=== PATIENT | female | born 1950 | race Caucasian/White ===

== ENCOUNTER → 2017-10-27 11:34 | Outpatient (CLI) | payer MEDICARE, SELFPAY ==
[2017-10-27 14:29] LABS: Hemoglobin A1c 7.9 % (4.2-6.3)
== END ==
PROVIDERS: Family Provider Internal Medicine Adolescent Medicine; PCP Internal Medicine Adolescent Medicine; Visit Provider Internal Medicine
DX: E10.9 Type 1 diabetes mellitus without complications (principal); Z79.4 Long term (current) use of insulin
CPT/HCPCS: 36415; 83036

== ENCOUNTER → 2018-06-07 10:51 | Outpatient (CLI) | payer MEDICARE, SELFPAY ==
[2018-06-07 12:12] LABS: Hematocrit 46.8 % (37-47); Hemoglobin 15.3 g/dl (12.0-15.0); Mean Corp Hgb Conc 32.7 g/gl (32-36); Mean Corpuscular Hgb 27.4 pg (27.0-32.0); Mean Corpuscular Volume 83.9 fL (81-99); Mean Platelet Vol. 9.6 fl (6.2-12.0); Platelet Count 243 K/mm3 (150-450); RBC Distribution Width SD 49.1 fl (35.1-43.9); Red Blood Count 5.58 M/mm3 (4.2-5.4); White Blood Count 7.6 K/mm3 (4.4-11.0)
[2018-06-07 12:13] LABS: Scan Indicated on CBC? Y/N NO
[2018-06-07 12:30] LABS: Hemoglobin A1c 8.6 % (4.2-6.3)
[2018-06-07 12:44] LABS: Microalbumin,Random Urine < 5.0 mg/L (NO RANGE EST.)
[2018-06-07 12:50] LABS: ALB/GLOB Ratio 0.8 RATIO (0.9-2.4); AST(SGOT) 29 U/L (15-37); Alanine Aminotransfer ALT/SGPT 39 U/L (13-56); Albumin, Serum 3.2 g/dL (3.2-5.0); Alkaline Phosphatase 83 U/L (45-117); Anion Gap 11 (5-15); BUN 26 mg/dL (7-18); Chloride 105 mmol/L (98-107); Cholesterol 130 mg/dL (200); Creatinine, Serum 1.37 mg/dL (0.55-1.02); EST Glomerular Filtration Rate 41 mL/min (>60); Est Glom Filt Rate - Afr Amer 50 mL/min (>60); Glucose 121 mg/dL (74-106); High Density Lipoprotein 41 mg/dL; Potassium 3.8 mmol/L (3.5-5.1); Protein, Total 7.2 g/dL (6.4-8.2); Sodium Level 142 mmol/L (136-145); Thyroid Stim Hormone (TSH) 2.49 uIU/mL (0.358-3.74); Triglycerides 203 mg/dL; Very Low Density Lipoprotein 41 mg/dL (5-40)
--- OUTSIDE RECORDS SUMMARY | 2018-09-08 19:12 | XMS RPT_ITS ---
:1950 Author Organization OHIP Support Name Relationship Address Phone R Unavailable Unavailable Unavailable JERRY FISHER Unavailable [address] + [place] [address] CLARISSA FISHER Unavailable Unavailable + ~([phone] NATALIA, ELIJAH Unavailable Unavailable + MERVAT FISHERICK Unavailable Unavailable + ~([phone] HERBERT FISHERRA Unavailable Unavailable + NATALIAMERVAT PARSONSICK Unavailable Unavailable + ~(330 NATALIA, ELIJAH Unavailable Unavailable + NATALIAANTONIETA PARSONSDRICK Unavailable Unavailable + ~(330 NATALIA, ELIJAH Unavailable Unavailable + NATALIAANTONIETA PARSONSDRICK Unavailable Unavailable + ~(330 NATALIA, ELIJAH Unavailable Unavailable + ANTONIETA FISHERDRICK Unavailable Unavailable + ~(330 NATALIA, ELIJAH Unavailable Unavailable + NATALIAMERVAT PARSONSICK Unavailable Unavailable + ~(330 NATALIA, ELIJAH Unavailable Unavailable + NATALIAMEGAN PARSONSICK Unavailable Unavailable + NATALIAMERVAT PARSONSICK Unavailable Unavailable + ~([phone] HERBERT FISHERRA Unavailable Unavailable + R Unavailable Unavailable Unavailable JERRY FISHER Unavailable [address] + [facility] [place] [address] MEGAN FISHERICK Unavailable [id number] + Care Team Providers Name Role Phone DEVORA BASS Attending Unavailable DEVORA BASS Referring Unavailable YANELY SHANKAR Primary Care Unavailable DEVORA BASS Attending Unavailable DEVORA BASS Referring Unavailable WESTOLGA LIDIABECKYANELY Primary Care Unavailable DUNG GARCIA MD Attending Unavailable YANELY SHANKAR MD Primary Care Unavailable DUNG GARCIA MD Attending Unavailable YANELY SHANKAR MD Primary Care Unavailable DUNG GARCIA MD Admitting Unavailable DUNG GARCIA MD Consulting Unavailable KIANNA MENA MD Consulting Unavailable TANO ROLDAN MD Consulting Unavailable DEVORA WALTER DO Consulting Unavailable DEVORA BASS MD Consulting Unavailable HOSPITALISTJORGE Consulting Unavailable ELOINA PRIDE Consulting Unavailable DUNG GARCIA MD Attending Unavailable YANELY SHANKAR MD Primary Care Unavailable YANELY SHANKAR MD Attending Unavailable YANELY SHANKAR MD Primary Care Unavailable YANELY SHANKAR MD Primary Care Unavailable DUNG GARCIA MD Admitting Unavailable DUNG GARCIA MD Attending Unavailable THERESA FELDMAN MD Consulting Unavailable DUNG GARCIA MD Consulting Unavailable HOSPITALISTJORGE Consulting Unavailable DUNG GARCIA MD Attending Unavailable YANELY SHANKAR MD Primary Care Unavailable DUNG GARCIA MD Attending Unavailable YANELY SHANKAR MD Primary Care Unavailable YANELY SHANKAR MD Attending Unavailable YANELY SHANKAR MD Primary Care Unavailable DUNG GARCIA MD Attending Unavailable YANELY SHANKAR MD Primary Care Unavailable Jonnathan Don Attending Unavailable PROBLEMS PROBLEMS DATE TYPE CONDITION / CODE ATTENDING STATUS SOURCE 03/28/2018 Admitting Type 2 diabetes RAAD PEREZ, Active [facility] Diagnosis mellitus without YANELY C [facility] complications / Repository E11.9(ICD-10) 03/28/2018 Admitting Obstructive sleep RAAD PEREZ, Active [facility] Diagnosis apnea (adult) YANELY C [facility] (pediatric) / Repository G47.33(ICD-10) 03/28/2018 Admitting Unspecified RAAD PEREZ, Active [facility] Diagnosis osteoarthritis, YANELY C [facility] unspecified site / Repository M19.90(ICD-10) 03/28/2018 Admitting Obesity, RAAD PEREZ, Active [facility] Diagnosis unspecified / YANELY C [facility] E66.9(ICD-10) Repository 03/28/2018 Admitting Vitamin D RAAD PEREZ, Active [facility] Diagnosis deficiency, YANELY C [facility] unspecified / Repository E55.9(ICD-10) 03/28/2018 Admitting Essential (primary) RAAD PEREZ, Active [facility] Diagnosis hypertension / YANELY C [facility] I10(ICD-10) Repository 03/28/2018 Admitting Hyperlipidemia, RAAD PEREZ, Active [facility] Diagnosis unspecified / YANELY C [facility] E78.5(ICD-10) Repository 10/27/2017 Unknown E10.9 - Type 1 DEVORA BASS Active [place] diabetes mellitus [facility] complications / Repository E10.9(ICD-10) 10/15/2017 Admitting Unknown / Jonnathan Don Active [facility] Medical diagnosis UNK(Unknown) [facility] Repository PROCEDURES PROCEDURES No Procedure Records FoundRESULTS RESULTS CBC-COMPLETE BLOOD CNT Collected: 06/07/2018 Status: F Source: [facility] NO DIFF 10:56 AM REPOSITORY TYPE CODE TESTS RESULT OUT OF RANGE REFERENCE UNITS LAB L100.1000 4.4-11.0 K/mm3 Normal WBC 7.6 LAB L100.1200 4.2-5.4 M/mm3 High RBC 5.58 LAB L100.1300 12.0-15.0 g/dl High HGB 15.3 LAB L100.1400 37-47 % Normal HCT 46.8 LAB L100.1500 81-99 fL Normal MCV 83.9 LAB L100.1600 27.0-32.0 pg Normal MCH 27.4 LAB L100.1700 32-36 g/gl Normal MCHC 32.7 LAB L100.1810 11.6-14.6 % High RDW CV 16.0 LAB L100.1820 35.1-43.9 fl High RDW SD 49.1 LAB L100.1900 150-450 K/mm3 Normal PLT 243 LAB L100.2000 6.2-12.0 fl Normal MPV 9.6 Performed By: #### L100.0500 #### [facility] [address] [place], [address] HEMOGLOBIN A1C Collected: 06/07/2018 Status: F Source: [facility] 10:56 AM REPOSITORY TYPE CODE TESTS RESULT OUT OF RANGE REFERENCE UNITS LAB L501.9985 4.2-6.3 % High HGB A1C 8.6 Performed By: #### L501.9985 #### [facility] [address] [place], [place], [address] MICROALB:CREAT Collected: 06/07/2018 Status: F Source: [facility] RATIO,RANDOM UR 10:56 AM REPOSITORY TYPE CODE TESTS RESULT OUT OF RANGE REFERENCE UNITS LAB L501.1200 NO RANGE EST. mg/dL 46.50 Normal UR CREAT LAB L502.0500 NO RANGE EST. mg/L < 5.0 Normal MICROALBUMI N,UR LAB L502.0600 <30 mg/g CRE mg/g CRE Test Normal not performed MALB:CREAT Performed By: #### L502.0250 #### [facility] [address] [place] [place], [address] COMPREHENSIVE METABOLIC Collected: 06/07/2018 Status: F Source: [facility] 10:56 AM REPOSITORY TYPE CODE TESTS RESULT OUT OF RANGE REFERENCE UNITS LAB L501.0100 74-106 mg/dL High GLU 121 Result Comment: Fasting Glucose result from 100 to 125 mg/dL suggests IMPAIRED HOMEOSTASIS per A.D.A. criteria. Please note revised GLUCOSE reference range effective 2017. LAB L501.1000 7-18 mg/dL High BUN 26 LAB L501.1100 0.55-1.02 mg/dL High CREAT,SERUM 1.37 Result Comment: The validity of the calculated GFR AND GFRAA in patients over 70 years has not been determined. Clinical correlation is essential. LAB L501.1110 >60 mL/min Low EST GFR 41 Result Comment: Non- GFR Calc LAB L501.1115 >60 mL/min Low EST GFR - AA 50 Result Comment: GFR Calc LAB L501.1300 10-20 RATIO Normal BUN/CRE 19.0 LAB L501.1500 6.4-8.2 g/dL T Normal PROT 7.2 LAB L501.1800 3.2-5.0 g/dL Normal ALB 3.2 LAB L501.1950 2.2-4.2 g/dL Normal GLOB 4.0 LAB L501.2000 0.9-2.4 RATIO Low A/G 0.8 LAB L501.2200 8.5-10.1 mg/dL CA Normal 9.0 LAB L501.4100 15-37 U/L Normal AST 29 LAB L501.4305 45-117 U/L Normal ALK P 83 LAB L501.4405 13-56 U/L Normal ALT 39 LAB L501.4600 0.20-1.00 mg/dL T Normal BILI 0.80 LAB L501.5300 136-145 mmol/L NA Normal 142 LAB L501.5600 3.5-5.1 mmol/L K Normal 3.8 LAB L501.5900 98-107 mmol/L CL Normal 105 LAB L501.6100 21.0-32.0 mmol/L Normal CO2 26.0 LAB L501.6200 5-15 Normal GAP 11 Performed By: #### L500.4050, L500.4100, L501.9520 #### [facility] [address] [place], [address] LIPID PROFILE Collected: 06/07/2018 Status: F Source: [facility] 10:56 AM REPOSITORY TYPE CODE TESTS RESULT OUT OF RANGE REFERENCE UNITS LAB L501.4900 200 mg/dL Normal CHOL 130 Result Comment: <200 mg/dL Desirable 200-240 mg/dL Borderline >240 mg/dL High Risk LAB L501.5000 mg/dL High TRIG 203 Result Comment: The drugs N-Acetylcysteine and Metamizole may falsely depress this assay. Serum Triglycerides Reference Interval Normal <150 mg/dL Borderline high 150 - 199 mg/dL High 200 - 499 mg/dL Very High > or = 500 mg/dL LAB L501.6400 mg/dL Normal HDL 41 Result Comment: The drugs N-Acetylcysteine and Metamizole may falsely depress this assay. Reference Range HDL <40 mg/dL Low HDL Cholesterol HDL >or= 60 mg/dL High HDL Cholesterol LAB L501.6500 0-130 mg/dL Normal LDL 48 LAB L501.6600 5-40 mg/dL High VLDL 41 Performed By: #### L500.4050, L500.4100, L501.9520 #### [facility] [address] [place], [place], [id number] THYROID STIM HORMONE Collected: 06/07/2018 Status: F Source: [facility] (TSH) 10:56 AM REPOSITORY TYPE CODE TESTS RESULT OUT OF RANGE REFERENCE UNITS LAB L501.9520 0.358-3.74 uIU/mL Normal TSH 2.49 Performed By: #### L500.4050, L500.4100, L501.9520 #### [facility] [place], [address] BMP Collected: 03/28/2018 Status: F Source: [facility] 3:32 PM [facility] REPOSITORY TYPE CODE TESTS RESULT OUT OF REFERENCE UNITS RANGE LAB GLU(LOINC) 82-115 mg/dL Glucose High Level 185 LAB NA(LOINC) 136-145 mEq/L Sodium Level 140 LAB K(LOINC) 3.5-5.0 mEq/L Potassium Level 3.9 LAB CL(LOINC) 98-110 mEq/L Chloride 103 LAB CO2(LOINC) 22-32 mEq/L CO2 26 LAB EBAL(LOINC 4.0-15.0 mEq/L ) Electrolyte Balance 11.0 LAB BUN(LOINC) 8.0-22.0 mg/dL BUN High 24.0 LAB CRE(LOINC) 0.50-1.20 mg/dL Creatinine Lvl (s) 1.17 LAB BC(LOINC) 10.0-22.0 ratio BUN/Creatinine 20.5 Ratio LAB CA(LOINC) 8.4-10.1 mg/dL Calcium Lvl 9.7 Performed By: #### BMP, GFR #### [place] [address] .GFR Collected: 03/28/2018 Status: F Source: [facility] 3:32 PM [facility] REPOSITORY TYPE CODE TESTS RESULT OUT OF REFERENCE UNITS RANGE LAB GFRAA(LOINC ml/min/1.73 ) sqm GFR 56 [place] Result Comment: GFR Population mean for , Non- Americans Ages 20-29 = 116 mL/min/1.73 sq.m. Ages 30-39 = 107 mL/min/1.73 sq.m. Ages 40-49 = 99 mL/min/1.73 sq.m. Ages 50-59 = 93 mL/min/1.73 sq.m. Ages 60-69 = 85 mL/min/1.73 sq.m. Ages 70+ = 75 mL/min/1.73 sq.m. Chronic Kidney Disease: Less than 60 mL/min/1.73 square meters End Stage Renal Disease: Less than 15 mL/min/1.73 square meters LAB GFRNO(LOINC) ml/min/1.73sqm GFR Non- 46 Result Comment: GFR Population mean for , Non- Americans Ages 20-29 = 116 mL/min/1.73 sq.m. Ages 30-39 = 107 mL/min/1.73 sq.m. Ages 40-49 = 99 mL/min/1.73 sq.m. Ages 50-59 = 93 mL/min/1.73 sq.m. Ages 60-69 = 85 mL/min/1.73 sq.m. Ages 70+ = 75 mL/min/1.73 sq.m. Chronic Kidney Disease: Less than 60 mL/min/1.73 square meters End Stage Renal Disease: Less than 15 mL/min/1.73 square meters Performed By: #### BMP, GFR #### [place] [address] CBC Collected: 01/07/2018 Status: F Source: [facility] 3:31 AM [facility] REPOSITORY TYPE CODE TESTS RESULT OUT OF REFERENCE UNITS RANGE LAB WBC(LOINC) 4.50-10.80 10 3/mcL WBC 10.50 LAB RBCCT(LOINC 4.10-5.30 10 6/mcL ) RBC 4.89 LAB HGB(LOINC) 12.0-16.0 G/dL Hgb 13.9 LAB HCT(LOINC) 34.0-46.0 % Hct 41.8 LAB MCV(LOINC) 80.0-99.0 fL MCV 85.3 LAB MCH(LOINC) 27.0-33.0 pg MCH 28.5 LAB MCHC(LOINC) 32.0-36.0 G/dL MCHC 33.4 LAB RDW(LOINC) 11.5-15.5 % RDW 15.5 LAB PLT(LOINC) 150-450 10 3/mcL Platelet 245 LAB MPV(LOINC) 6.6-10.5 fL MPV 7.5 Performed By: #### CBC, ADIFF, ANEU, PRO, BMP, GFR #### [place] [address] .AUTO DIFF Collected: 01/07/2018 Status: F Source: [facility] 3:31 AM [facility] REPOSITORY TYPE CODE TESTS RESULT OUT OF REFERENCE UNITS RANGE LAB BALDEMAR(LOINC) 50.0-75.0 % Neutrophil % 70.6 LAB LYM(LOINC) 20.0-40.0 % Lymphocyte % 23.1 LAB MON(LOINC) 2.0-13.0 % Monocyte % 4.9 LAB EO(LOINC) 0.0-6.0 % Eosinophil % 0.7 LAB BAS(LOINC) 0.0-2.5 % Basophil % 0.7 LAB ABLYM(LOIN 0.90-4.32 10 3/mcL C) Lymphocyte, 2.40 Absolute LAB SLAVA(LOINC 0.09-1.40 10 3/mcL ) Monocyte, 0.50 Absolute LAB AEOS(LOINC 0.00-0.65 10 3/mcL ) Eosinophil, 0.10 Absolute LAB ABAS(LOINC 0.00-0.27 10 3/mcL ) Basophil, 0.10 Absolute Performed By: #### CBC, ADIFF, ANEU, PRO, BMP, GFR #### [place] [address] .NEUABS Collected: 01/07/2018 Status: F Source: [facility] 3:31 AM [facility] REPOSITORY TYPE CODE TESTS RESULT OUT OF REFERENCE UNITS RANGE LAB ANEU(LOINC) 2.25-8.10 10 3/mcL Neutrophil, 7.40 Absolute Performed By: #### CBC, ADIFF, ANEU, PRO, BMP, GFR #### [place] [address] PRO Collected: 01/07/2018 Status: F Source: [facility] 3:31 AM [facility] REPOSITORY TYPE CODE TESTS RESULT OUT OF REFERENCE UNITS RANGE LAB PT(LOINC) 9.0-14.5 seconds Protime 11.9 Result Comment: Effective 01/03/08, Protime results may be affected by some antibiotics (i.e. Ciprofloxacin, Azithromycin, Bactrim) which may potentiate the action of oral anticoagulants, with further increases in Protime/INR. LAB INR(LOINC) ratio PT International Ratio 1.0 Result Comment: The [place] [employer] (CHEST, 1991, 102:312S-25S) recommended therapeutic range for oral anticoagulant therapy is: LOW RISK: Prophylaxis of venous thrombosis INR: 2.0-3.0 Treatment of pulmonary embolism 2.0-3.0 Prevention of systemic embolism 2.0-3.0 HIGH RISK: Mechanical prosthetic valves 2.5-3.5 Performed By: #### CBC, ADIFF, ANEU, PRO, BMP, GFR #### [address] [address] BMP Collected: 01/07/2018 Status: F Source: [facility] 3:31 AM [facility] REPOSITORY TYPE CODE TESTS RESULT OUT OF REFERENCE UNITS RANGE LAB GLU(LOINC) 82-115 mg/dL Glucose High Level 179 LAB NA(LOINC) 136-145 mEq/L Sodium Level 141 LAB K(LOINC) 3.5-5.0 mEq/L Potassium Level 4.0 LAB CL(LOINC) 98-110 mEq/L Chloride 106 LAB CO2(LOINC) 22-32 mEq/L CO2 28 LAB EBAL(LOINC 4.0-15.0 mEq/L ) Electrolyte Balance 7.0 LAB BUN(LOINC) 8.0-22.0 mg/dL BUN 11.0 LAB CRE(LOINC) 0.50-1.20 mg/dL Creatinine Lvl (s) 0.94 LAB BC(LOINC) 10.0-22.0 ratio BUN/Creatinine 11.7 Ratio LAB CA(LOINC) 8.4-10.1 mg/dL Low Calcium Lvl 8.3 Performed By: #### CBC, ADIFF, ANEU, PRO, BMP, GFR #### [address] [address] .GFR Collected: 01/07/2018 Status: F Source: [facility] 3:31 AM [facility] REPOSITORY TYPE CODE TESTS RESULT OUT OF REFERENCE UNITS RANGE LAB GFRAA(LOINC ml/min/1.73 ) sqm GFR >60 [place] Result Comment: GFR Population mean for , Non- Americans Ages 20-29 = 116 mL/min/1.73 sq.m. Ages 30-39 = 107 mL/min/1.73 sq.m. Ages 40-49 = 99 mL/min/1.73 sq.m. Ages 50-59 = 93 mL/min/1.73 sq.m. Ages 60-69 = 85 mL/min/1.73 sq.m. Ages 70+ = 75 mL/min/1.73 sq.m. Chronic Kidney Disease: Less than 60 mL/min/1.73 square meters End Stage Renal Disease: Less than 15 mL/min/1.73 square meters LAB GFRNO(LOINC) ml/min/1.73sqm GFR Non- 60 Result Comment: GFR Population mean for , Non- Americans Ages 20-29 = 116 mL/min/1.73 sq.m. Ages 30-39 = 107 mL/min/1.73 sq.m. Ages 40-49 = 99 mL/min/1.73 sq.m. Ages 50-59 = 93 mL/min/1.73 sq.m. Ages 60-69 = 85 mL/min/1.73 sq.m. Ages 70+ = 75 mL/min/1.73 sq.m. Chronic Kidney Disease: Less than 60 mL/min/1.73 square meters End Stage Renal Disease: Less than 15 mL/min/1.73 square meters Performed By: #### CBC, ADIFF, ANEU, PRO, BMP, GFR #### [place] [address] Observed: 01/06/2018 Status: F Source: [facility] 6:01 PM [facility] REPOSITORY . MICRO - Microbiology PROCEDURE: Acid Fast Bacilli Culture w Stain if Ind [*1] SOURCE: Body Fluid BODY SITE: Back COLLECTED DATE/TIME: 01/06/2018 18:01 EDT RECEIVED DATE/TIME: 01/06/2018 18:45 EDT START DATE/TIME: 01/06/2018 18:46 EDT FREE TEXT SOURCE: cultures back FINAL REPORTS Final Report [] Verified Date/Time/Personnel: 03/03/2018 15:52 EDT No growth of Acid Fast Bacilli PRELIMINARY REPORTS Preliminary Report [] Verified Date/Time/Personnel: 01/06/2018 19:59 EDT No growth of Acid Fast Bacilli to date. Final report to follow at 8 weeks. STAINS AFS [] Verified Date/Time/Personnel: 01/07/2018 11:24 EDT Acid Fast Smear from Concentrated Specimen: Negative Performing Locations *1: This test was performed at: [address], [address] [place] [address] Performed By: #### CAF #### [address] [address] Observed: 01/06/2018 Status: C Source: [facility] 6:01 PM [facility] REPOSITORY . MICRO - Microbiology PROCEDURE: Culture Wound Deep Aerobe/Anaerobe w Gram Stain [*1] SOURCE: Exudate BODY SITE: Back COLLECTED DATE/TIME: 01/06/2018 18:01 EDT RECEIVED DATE/TIME: 01/06/2018 18:45 EDT START DATE/TIME: 01/06/2018 18:46 EDT FREE TEXT SOURCE: cultures back AMENDED REPORTS Amended Report [] Verified Date/Time/Personnel: 01/13/2018 10:57 EDT Light Acinetobacter lwoffii No anaerobes isolated at 96 hours. FINAL REPORTS Final Report [] Verified Date/Time/Personnel: 01/12/2018 11:28 EDT Light Acinetobacter lwoffii PRELIMINARY REPORTS Preliminary Report [] Verified Date/Time/Personnel: 01/10/2018 13:30 EDT Light Gram Negative Rods Final identification and NIDIA to follow. Preliminary Report [] Verified Date/Time/Personnel: 01/08/2018 14:53 EDT Culture results pending. Preliminary Report [] Verified Date/Time/Personnel: 01/07/2018 13:06 EDT No growth to date STAINS GS [] Verified Date/Time/Personnel: 01/06/2018 22:16 EDT Rare Polymorphonuclear cells No organisms seen. SUSCEPTIBILITY RESULTS Acinetobacter lwoffii Antibiotic NIDIA Dilutn NIDIA Interp Ceftazidime <=1 Susceptible Ciprofloxacin <=1 Susceptible Gentamicin <=4 Susceptible Levofloxacin <=2 Susceptible Meropenem <=1 Susceptible Tobramycin <=4 Susceptible Trimethoprim/ <=2/38 Susceptible Sulfa Performing Locations *1: This test was performed at: [facility], [address] [place] [address], [id number] , [place] Performed By: #### CWDP #### [address] [address] Observed: 01/06/2018 Status: F Source: [facility] 6:01 PM [facility] REPOSITORY . MICRO - Microbiology PROCEDURE: Fungal Culture with Stain if Ind [*1] SOURCE: Body Fluid BODY SITE: Back COLLECTED DATE/TIME: 01/06/2018 18:01 EDT RECEIVED DATE/TIME: 01/06/2018 18:45 EDT START DATE/TIME: 01/06/2018 18:46 EDT FREE TEXT SOURCE: culture back FINAL REPORTS Final Report [] Verified Date/Time/Personnel: 02/08/2018 09:29 EDT No fungus isolated in 4 weeks. PRELIMINARY REPORTS Preliminary Report [] Verified Date/Time/Personnel: 01/10/2018 07:59 EDT No fungus isolated to date. Final report to follow. STAINS FUNSM [] Verified Date/Time/Personnel: 01/07/2018 11:25 EDT No fungal elements observed by calcofluor white stain. Performing Locations *1: This test was performed at: [facility], [address] [place] [address], [id number] , [facility] Performed By: #### CFUNG #### [address] [address] CBC Collected: 01/06/2018 Status: F Source: [facility] 4:03 AM [facility] REPOSITORY TYPE CODE TESTS RESULT OUT OF REFERENCE UNITS RANGE LAB WBC(LOINC) 4.50-10.80 10 3/mcL WBC 9.80 LAB RBCCT(LOINC 4.10-5.30 10 6/mcL ) RBC 5.15 LAB HGB(LOINC) 12.0-16.0 G/dL Hgb 14.5 LAB HCT(LOINC) 34.0-46.0 % Hct 43.7 LAB MCV(LOINC) 80.0-99.0 fL MCV 84.8 LAB MCH(LOINC) 27.0-33.0 pg MCH 28.2 LAB MCHC(LOINC) 32.0-36.0 G/dL MCHC 33.3 LAB RDW(LOINC) 11.5-15.5 % RDW 15.5 LAB PLT(LOINC) 150-450 10 3/mcL Platelet 247 LAB MPV(LOINC) 6.6-10.5 fL MPV 7.8 Performed By: #### CBC, ADIFF, ANEU, PRO, BMP, GFR #### [address] [address] .AUTO DIFF Collected: 01/06/2018 Status: F Source: [facility] 4:03 AM [facility] REPOSITORY TYPE CODE TESTS RESULT OUT OF REFERENCE UNITS RANGE LAB BALDEMAR(LOINC) 50.0-75.0 % Neutrophil % 61.9 LAB LYM(LOINC) 20.0-40.0 % Lymphocyte % 28.1 LAB MON(LOINC) 2.0-13.0 % Monocyte % 7.4 LAB EO(LOINC) 0.0-6.0 % Eosinophil % 1.5 LAB BAS(LOINC) 0.0-2.5 % Basophil % 1.1 LAB ABLYM(LOIN 0.90-4.32 10 3/mcL C) Lymphocyte, 2.70 Absolute LAB SLAVA(LOINC 0.09-1.40 10 3/mcL ) Monocyte, 0.70 Absolute LAB AEOS(LOINC 0.00-0.65 10 3/mcL ) Eosinophil, 0.10 Absolute LAB ABAS(LOINC 0.00-0.27 10 3/mcL ) Basophil, 0.10 Absolute Performed By: #### CBC, ADIFF, ANEU, PRO, BMP, GFR #### [address] [address] .NEUABS Collected: 01/06/2018 Status: F Source: [facility] 4:03 AM [facility] REPOSITORY TYPE CODE TESTS RESULT OUT OF REFERENCE UNITS RANGE LAB ANEU(LOINC) 2.25-8.10 10 3/mcL Neutrophil, 6.10 Absolute Performed By: #### CBC, ADIFF, ANEU, PRO, BMP, GFR #### [address] [address] PRO Collected: 01/06/2018 Status: F Source: [facility] 4:03 AM [facility] REPOSITORY TYPE CODE TESTS RESULT OUT OF REFERENCE UNITS RANGE LAB PT(LOINC) 9.0-14.5 seconds Protime 11.1 Result Comment: Effective 01/03/08, Protime results may be affected by some antibiotics (i.e. Ciprofloxacin, Azithromycin, Bactrim) which may potentiate the action of oral anticoagulants, with further increases in Protime/INR. LAB INR(LOINC) ratio PT International Ratio 1.0 Result Comment: The [place] [employer] (CHEST, 1992, 102:312S-25S) recommended therapeutic range for oral anticoagulant therapy is: LOW RISK: Prophylaxis of venous thrombosis INR: 2.0-3.0 Treatment of pulmonary embolism 2.0-3.0 Prevention of systemic embolism 2.0-3.0 HIGH RISK: Mechanical prosthetic valves 2.5-3.5 Performed By: #### CBC, ADIFF, ANEU, PRO, BMP, GFR #### [address] [address] BMP Collected: 01/06/2018 Status: F Source: [facility] 4:03 AM [facility] REPOSITORY TYPE CODE TESTS RESULT OUT OF REFERENCE UNITS RANGE LAB GLU(LOINC) 82-115 mg/dL Glucose High Level 172 LAB NA(LOINC) 136-145 mEq/L Sodium Level 143 LAB K(LOINC) 3.5-5.0 mEq/L Potassium Level 4.1 LAB CL(LOINC) 98-110 mEq/L Chloride 106 LAB CO2(LOINC) 22-32 mEq/L CO2 30 LAB EBAL(LOINC 4.0-15.0 mEq/L ) Electrolyte Balance 7.0 LAB BUN(LOINC) 8.0-22.0 mg/dL BUN 16.0 LAB CRE(LOINC) 0.50-1.20 mg/dL Creatinine Lvl (s) 0.90 LAB BC(LOINC) 10.0-22.0 ratio BUN/Creatinine 17.8 Ratio LAB CA(LOINC) 8.4-10.1 mg/dL Calcium Lvl 8.7 Performed By: #### CBC, ADIFF, ANEU, PRO, BMP, GFR #### [address] [address] .GFR Collected: 01/06/2018 Status: F Source: [facility] 4:03 [facility] REPOSITORY TYPE CODE TESTS RESULT OUT OF REFERENCE UNITS RANGE LAB GFRAA(LOINC ml/min/1.73 ) sqm GFR >60 [place] Result Comment: GFR Population mean for , Non- Americans Ages 20-29 = 116 mL/min/1.73 sq.m. Ages 30-39 = 107 mL/min/1.73 sq.m. Ages 40-49 = 99 mL/min/1.73 sq.m. Ages 50-59 = 93 mL/min/1.73 sq.m. Ages 60-69 = 85 mL/min/1.73 sq.m. Ages 70+ = 75 mL/min/1.73 sq.m. Chronic Kidney Disease: Less than 60 mL/min/1.73 square meters End Stage Renal Disease: Less than 15 mL/min/1.73 square meters LAB GFRNO(LOINC) ml/min/1.73sqm GFR Non- >60 Result Comment: GFR Population mean for , Non- Americans Ages 20-29 = 116 mL/min/1.73 sq.m. Ages 30-39 = 107 mL/min/1.73 sq.m. Ages 40-49 = 99 mL/min/1.73 sq.m. Ages 50-59 = 93 mL/min/1.73 sq.m. Ages 60-69 = 85 mL/min/1.73 sq.m. Ages 70+ = 75 mL/min/1.73 sq.m. Chronic Kidney Disease: Less than 60 mL/min/1.73 square meters End Stage Renal Disease: Less than 15 mL/min/1.73 square meters Performed By: #### CBC, ADIFF, ANEU, PRO, BMP, GFR #### [address] [address] CRP Collected: 01/06/2018 Status: F Source: [facility] 4:03 AM [facility] REPOSITORY TYPE CODE TESTS RESULT OUT OF REFERENCE UNITS RANGE LAB CRP(LOINC) <=0.80 mg/dL High C-Reactive 1.32 Protein Performed By: #### CRP #### [address] [address] XR SPINE LUMBAR Observed: 01/05/2018 Status: F Source: [facility] 7:45 PM [facility] REPOSITORY ORIGINAL XR SPINE LUMBAR AP/LAT AP, lateral views CLINICAL STATEMENT: back pain COMPARISON: 11/24/[address] FINDINGS: Posterior fusion of L1-L2 redemonstrated. Hardware appears intact. No gross surrounding lucency. Alignment is intact. No acute fracture or spondylolisthesis. SI joints intact. Severe disc space narrowing at L1-L2 and L4-L5 redemonstrated. Moderate disc space narrowing at L2-L3. IMPRESSION: 1. Intact hardware. Interpreted By: Coleen Khanna MD Preliminary Report By: Coleen Khanna MD Electronically Signed By: Coleen Khanna MD Dictated Date: 01/06/2018 8:22:24 AM Prelim Date: 01/06/2018 8:22:24 AM Sign Date: 01/06/2018 8:26:05 AM CBC Collected: 11/26/2017 Status: F Source: [facility] 5:11 AM [facility] REPOSITORY TYPE CODE TESTS RESULT OUT OF REFERENCE UNITS RANGE LAB WBC(LOINC) 4.50-10.80 10 3/mcL High WBC 12.70 LAB RBCCT(LOINC 4.10-5.30 10 6/mcL ) RBC 4.63 LAB HGB(LOINC) 12.0-16.0 G/dL Hgb 13.2 LAB HCT(LOINC) 34.0-46.0 % Hct 39.7 LAB MCV(LOINC) 80.0-99.0 fL MCV 85.8 LAB MCH(LOINC) 27.0-33.0 pg MCH 28.6 LAB MCHC(LOINC) 32.0-36.0 G/dL MCHC 33.3 LAB RDW(LOINC) 11.5-15.5 % High RDW 16.0 LAB PLT(LOINC) 150-450 10 3/mcL Platelet 184 LAB MPV(LOINC) 6.6-10.5 fL MPV 7.6 Performed By: #### CBC, ADIFF, ANEU, BMP, GFR #### [place] [address] .AUTO DIFF Collected: 11/26/2017 Status: F Source: [facility] 5:11 AM [facility] REPOSITORY TYPE CODE TESTS RESULT OUT OF REFERENCE UNITS RANGE LAB BALDEMAR(LOINC) 50.0-75.0 % Neutrophil % 73.6 LAB LYM(LOINC) 20.0-40.0 % Low Lymphocyte % 17.5 LAB MON(LOINC) 2.0-13.0 % Monocyte % 8.5 LAB EO(LOINC) 0.0-6.0 % Eosinophil % 0.1 LAB BAS(LOINC) 0.0-2.5 % Basophil % 0.3 LAB ABLYM(LOIN 0.90-4.32 10 3/mcL C) Lymphocyte, 2.20 Absolute LAB SLAVA(LOINC 0.09-1.40 10 3/mcL ) Monocyte, 1.10 Absolute LAB AEOS(LOINC 0.00-0.65 10 3/mcL ) Eosinophil, 0.00 Absolute LAB ABAS(LOINC 0.00-0.27 10 3/mcL ) Basophil, 0.00 Absolute Performed By: #### CBC, ADIFF, ANEU, BMP, GFR #### [place] [address] .NEUABS Collected: 11/26/2017 Status: F Source: [facility] 5:11 AM [facility] REPOSITORY TYPE CODE TESTS RESULT OUT OF REFERENCE UNITS RANGE LAB ANEU(LOINC) 2.25-8.10 10 3/mcL High Neutrophil, 9.30 Absolute Performed By: #### CBC, ADIFF, ANEU, BMP, GFR #### [place] [address] BMP Collected: 11/26/2017 Status: F Source: [facility] 5:11 AM [facility] REPOSITORY TYPE CODE TESTS RESULT OUT OF REFERENCE UNITS RANGE LAB GLU(LOINC) 82-115 mg/dL Glucose High Level 128 LAB NA(LOINC) 136-145 mEq/L Sodium Level 139 LAB K(LOINC) 3.5-5.0 mEq/L Potassium Level 4.0 LAB CL(LOINC) 98-110 mEq/L Chloride 104 LAB CO2(LOINC) 22-32 mEq/L CO2 27 LAB EBAL(LOINC 4.0-15.0 mEq/L ) Electrolyte Balance 8.0 LAB BUN(LOINC) 8.0-22.0 mg/dL BUN High 25.0 LAB CRE(LOINC) 0.50-1.20 mg/dL Creatinine High Lvl (s) 1.34 LAB BC(LOINC) 10.0-22.0 ratio BUN/Creatinine 18.7 Ratio LAB CA(LOINC) 8.4-10.1 mg/dL Calcium Lvl 8.7 Performed By: #### CBC, ADIFF, ANEU, BMP, GFR #### [place] [address] .GFR Collected: 11/26/2017 Status: F Source: [facility] 5:11 AM [facility] REPOSITORY TYPE CODE TESTS RESULT OUT OF REFERENCE UNITS RANGE LAB GFRAA(LOINC ml/min/1.73 ) sqm GFR 48 [place] Result Comment: GFR Population mean for , Non- Americans Ages 20-29 = 116 mL/min/1.73 sq.m. Ages 30-39 = 107 mL/min/1.73 sq.m. Ages 40-49 = 99 mL/min/1.73 sq.m. Ages 50-59 = 93 mL/min/1.73 sq.m. Ages 60-69 = 85 mL/min/1.73 sq.m. Ages 70+ = 75 mL/min/1.73 sq.m. Chronic Kidney Disease: Less than 60 mL/min/1.73 square meters End Stage Renal Disease: Less than 15 mL/min/1.73 square meters LAB GFRNO(LOINC) ml/min/1.73sqm GFR Non- 40 Result Comment: GFR Population mean for , Non- Americans Ages 20-29 = 116 mL/min/1.73 sq.m. Ages 30-39 = 107 mL/min/1.73 sq.m. Ages 40-49 = 99 mL/min/1.73 sq.m. Ages 50-59 = 93 mL/min/1.73 sq.m. Ages 60-69 = 85 mL/min/1.73 sq.m. Ages 70+ = 75 mL/min/1.73 sq.m. Chronic Kidney Disease: Less than 60 mL/min/1.73 square meters End Stage Renal Disease: Less than 15 mL/min/1.73 square meters Performed By: #### CBC, ADIFF, ANEU, BMP, GFR #### [facility] [address] [place] [address] BMP Collected: 11/25/2017 Status: F Source: [facility] 3:45 AM [facility] REPOSITORY TYPE CODE TESTS RESULT OUT OF REFERENCE UNITS RANGE LAB GLU(LOINC) 82-115 mg/dL Glucose High Level 139 LAB NA(LOINC) 136-145 mEq/L Sodium Level 140 LAB K(LOINC) 3.5-5.0 mEq/L Potassium Level 4.1 LAB CL(LOINC) 98-110 mEq/L Chloride 106 LAB CO2(LOINC) 22-32 mEq/L CO2 27 LAB EBAL(LOINC 4.0-15.0 mEq/L ) Electrolyte Balance 7.0 LAB BUN(LOINC) 8.0-22.0 mg/dL BUN High 25.0 LAB CRE(LOINC) 0.50-1.20 mg/dL Creatinine Lvl (s) 0.95 LAB BC(LOINC) 10.0-22.0 ratio High BUN/Creatinine 26.3 Ratio LAB CA(LOINC) 8.4-10.1 mg/dL Calcium Lvl 8.5 Performed By: #### BMP, GFR, CBC, ADIFF, ANEU #### [place] [address] .GFR Collected: 11/25/2017 Status: F Source: [facility] 3:45 AM [facility] REPOSITORY TYPE CODE TESTS RESULT OUT OF REFERENCE UNITS RANGE LAB GFRAA(LOINC ml/min/1.73 ) sqm GFR >60 [place] Result Comment: GFR Population mean for , Non- Americans Ages 20-29 = 116 mL/min/1.73 sq.m. Ages 30-39 = 107 mL/min/1.73 sq.m. Ages 40-49 = 99 mL/min/1.73 sq.m. Ages 50-59 = 93 mL/min/1.73 sq.m. Ages 60-69 = 85 mL/min/1.73 sq.m. Ages 70+ = 75 mL/min/1.73 sq.m. Chronic Kidney Disease: Less than 60 mL/min/1.73 square meters End Stage Renal Disease: Less than 15 mL/min/1.73 square meters LAB GFRNO(LOINC) ml/min/1.73sqm GFR Non- 59 Result Comment: GFR Population mean for , Non- Americans Ages 20-29 = 116 mL/min/1.73 sq.m. Ages 30-39 = 107 mL/min/1.73 sq.m. Ages 40-49 = 99 mL/min/1.73 sq.m. Ages 50-59 = 93 mL/min/1.73 sq.m. Ages 60-69 = 85 mL/min/1.73 sq.m. Ages 70+ = 75 mL/min/1.73 sq.m. Chronic Kidney Disease: Less than 60 mL/min/1.73 square meters End Stage Renal Disease: Less than 15 mL/min/1.73 square meters Performed By: #### KAYLIN, GFR, CBC, ADIFF, ANEU #### [address] [address] CBC Collected: 11/25/2017 Status: F Source: [facility] 3:45 AM [facility] REPOSITORY TYPE CODE TESTS RESULT OUT OF REFERENCE UNITS RANGE LAB WBC(LOINC) 4.50-10.80 10 3/mcL High WBC 14.40 LAB RBCCT(LOINC 4.10-5.30 10 6/mcL ) RBC 5.07 LAB HGB(LOINC) 12.0-16.0 G/dL Hgb 14.6 LAB HCT(LOINC) 34.0-46.0 % Hct 43.0 LAB MCV(LOINC) 80.0-99.0 fL MCV 84.9 LAB MCH(LOINC) 27.0-33.0 pg MCH 28.9 LAB MCHC(LOINC) 32.0-36.0 G/dL MCHC 34.0 LAB RDW(LOINC) 11.5-15.5 % RDW 15.3 LAB PLT(LOINC) 150-450 10 3/mcL Platelet 188 LAB MPV(LOINC) 6.6-10.5 fL MPV 7.6 Performed By: #### KAYLIN, GFR, CBC, ADIFF, ANEU #### [address] [address] .AUTO DIFF Collected: 11/25/2017 Status: F Source: [facility] 3:45 AM [facility] REPOSITORY TYPE CODE TESTS RESULT OUT OF REFERENCE UNITS RANGE LAB BALDEMAR(LOINC) 50.0-75.0 % High Neutrophil % 85.5 LAB LYM(LOINC) 20.0-40.0 % Low Lymphocyte % 8.2 LAB MON(LOINC) 2.0-13.0 % Monocyte % 6.1 LAB EO(LOINC) 0.0-6.0 % Eosinophil % 0.0 LAB BAS(LOINC) 0.0-2.5 % Basophil % 0.2 LAB ABLYM(LOIN 0.90-4.32 10 3/mcL C) Lymphocyte, 1.20 Absolute LAB SLAVA(LOINC 0.09-1.40 10 3/mcL ) Monocyte, 0.90 Absolute LAB AEOS(LOINC 0.00-0.65 10 3/mcL ) Eosinophil, 0.00 Absolute LAB ABAS(LOINC 0.00-0.27 10 3/mcL ) Basophil, 0.00 Absolute Performed By: #### BMP, GFR, CBC, ADIFF, ANEU #### [place] [id number] .NEUABS Collected: 11/25/2017 Status: F Source: [facility] 3:45 AM [facility] REPOSITORY TYPE CODE TESTS RESULT OUT OF REFERENCE UNITS RANGE LAB ANEU(LOINC) 2.25-8.10 10 3/mcL High Neutrophil, 12.30 Absolute Performed By: #### BMP, GFR, CBC, ADIFF, ANEU #### [place] [address] CBC Collected: 11/24/2017 Status: F Source: [facility] 6:57 PM [facility] REPOSITORY TYPE CODE TESTS RESULT OUT OF REFERENCE UNITS RANGE LAB WBC(LOINC) 4.50-10.80 10 3/mcL WBC 7.90 LAB RBCCT(LOINC 4.10-5.30 10 6/mcL ) High RBC 5.53 LAB HGB(LOINC) 12.0-16.0 G/dL Hgb 15.9 LAB HCT(LOINC) 34.0-46.0 % High Hct 47.4 LAB MCV(LOINC) 80.0-99.0 fL MCV 85.8 LAB MCH(LOINC) 27.0-33.0 pg MCH 28.8 LAB MCHC(LOINC) 32.0-36.0 G/dL MCHC 33.5 LAB RDW(LOINC) 11.5-15.5 % High RDW 15.7 LAB PLT(LOINC) 150-450 10 3/mcL Platelet 197 LAB MPV(LOINC) 6.6-10.5 fL MPV 7.3 Performed By: #### CBC, ADIFF, ANEU, LAC, BMP, GFR, TROPI #### [place] [id number] .AUTO DIFF Collected: 11/24/2017 Status: F Source: [facility] 6:57 PM [facility] REPOSITORY TYPE CODE TESTS RESULT OUT OF REFERENCE UNITS RANGE LAB BALDEMAR(LOINC) 50.0-75.0 % High Neutrophil % 86.3 LAB LYM(LOINC) 20.0-40.0 % Low Lymphocyte % 11.9 LAB MON(LOINC) 2.0-13.0 % Low Monocyte % 1.4 LAB EO(LOINC) 0.0-6.0 % Eosinophil % 0.0 LAB BAS(LOINC) 0.0-2.5 % Basophil % 0.4 LAB ABLYM(LOIN 0.90-4.32 10 3/mcL C) Lymphocyte, 0.90 Absolute LAB SLAVA(LOINC 0.09-1.40 10 3/mcL ) Monocyte, 0.10 Absolute LAB AEOS(LOINC 0.00-0.65 10 3/mcL ) Eosinophil, 0.00 Absolute LAB ABAS(LOINC 0.00-0.27 10 3/mcL ) Basophil, 0.00 Absolute Performed By: #### CBC, ADIFF, ANEU, LAC, BMP, GFR, TROPI #### [place] [address] .NEUABS Collected: 11/24/2017 Status: F Source: [facility] 6:57 [facility] REPOSITORY TYPE CODE TESTS RESULT OUT OF REFERENCE UNITS RANGE LAB ANEU(LOINC) 2.25-8.10 10 3/mcL Neutrophil, 6.80 Absolute Performed By: #### CBC, ADIFF, ANEU, LAC, BMP, GFR, TROPI #### [place] [address] LAC Collected: 11/24/2017 Status: F Source: [facility] 6:57 [facility] REPOSITORY TYPE CODE TESTS RESULT OUT OF REFERENCE UNITS RANGE LAB LAC(LOINC) 0.2-2.0 mmol/L Lactic Acid 1.3 Lvl Performed By: #### CBC, ADIFF, ANEU, LAC, BMP, GFR, TROPI #### [place] [address] BMP Collected: 11/24/2017 Status: F Source: [facility] 6:57 [facility] REPOSITORY TYPE CODE TESTS RESULT OUT OF REFERENCE UNITS RANGE LAB GLU(LOINC) 82-115 mg/dL Glucose High Level 210 LAB NA(LOINC) 136-145 mEq/L Sodium Level 137 LAB K(LOINC) 3.5-5.0 mEq/L Potassium Level 4.4 LAB CL(LOINC) 98-110 mEq/L Chloride 105 LAB CO2(LOINC) 22-32 mEq/L CO2 26 LAB EBAL(LOINC 4.0-15.0 mEq/L ) Electrolyte Balance 6.0 LAB BUN(LOINC) 8.0-22.0 mg/dL BUN High 29.0 LAB CRE(LOINC) 0.50-1.20 mg/dL Creatinine Lvl (s) 0.89 LAB BC(LOINC) 10.0-22.0 ratio High BUN/Creatinine 32.6 Ratio LAB CA(LOINC) 8.4-10.1 mg/dL Calcium Lvl 9.0 Performed By: #### CBC, ADIFF, ANEU, LAC, BMP, GFR, TROPI #### [facility] [address] [place] [address] .GFR Collected: 11/24/2017 Status: F Source: [facility] 6:57 PM [facility] REPOSITORY TYPE CODE TESTS RESULT OUT OF REFERENCE UNITS RANGE LAB GFRAA(LOINC ml/min/1.73 ) sqm GFR >60 [place] Result Comment: GFR Population mean for , Non- Americans Ages 20-29 = 116 mL/min/1.73 sq.m. Ages 30-39 = 107 mL/min/1.73 sq.m. Ages 40-49 = 99 mL/min/1.73 sq.m. Ages 50-59 = 93 mL/min/1.73 sq.m. Ages 60-69 = 85 mL/min/1.73 sq.m. Ages 70+ = 75 mL/min/1.73 sq.m. Chronic Kidney Disease: Less than 60 mL/min/1.73 square meters End Stage Renal Disease: Less than 15 mL/min/1.73 square meters LAB GFRNO(LOINC) ml/min/1.73sqm GFR Non- >60 Result Comment: GFR Population mean for , Non- Americans Ages 20-29 = 116 mL/min/1.73 sq.m. Ages 30-39 = 107 mL/min/1.73 sq.m. Ages 40-49 = 99 mL/min/1.73 sq.m. Ages 50-59 = 93 mL/min/1.73 sq.m. Ages 60-69 = 85 mL/min/1.73 sq.m. Ages 70+ = 75 mL/min/1.73 sq.m. Chronic Kidney Disease: Less than 60 mL/min/1.73 square meters End Stage Renal Disease: Less than 15 mL/min/1.73 square meters Performed By: #### CBC, ADIFF, ANEU, LAC, BMP, GFR, TROPI #### [address] [address] TROPI Collected: 11/24/2017 Status: F Source: [facility] 6:57 PM [facility] REPOSITORY TYPE CODE TESTS RESULT OUT OF REFERENCE UNITS RANGE LAB TROPI(LOINC 0.000-0.040 ng/mL ) Troponin I <0.015 Result Comment: Troponin I reference ranges (02/26/14): 0.00-0.040 ng/mL Negative and non-diagnostic. >0.040 ng/mL Consistent with cardiac damage, increased clinical risk and possibility of myocardial infarction. Serial measurements, a rise & fall in test results, clinical history, appropriate symptoms and/or ECG changes may help assess possibility of HI. *Other non-acute coronary syndrome conditions such as CHF, myocarditis, pulmonary emboli, sepsis and cardiac surgery could result in myocardial damage and increased troponin levels. Performed By: #### CBC, ADIFF, ANEU, LAC, BMP, GFR, TROPI #### [address] [address] XR FLUORO < 1HR Observed: 11/24/2017 Status: F Source: [facility] TECH TIME 4:45 PM [facility] REPOSITORY ORIGINAL Intraoperative imaging lumbar spine HISTORY: Back pain 1.9 seconds fluoroscopy. 1.28 milligray dose. 2 digital images were obtained during instrumentation. Interpreted By: Theresa Contreras MD Preliminary Report By: Theresa Contreras MD Electronically Signed By: Theresa Contreras MD Dictated Date: 11/25/2017 12:39:49 AM Prelim Date: 11/25/2017 12:39:49 AM Sign Date: 11/25/2017 12:40:06 AM BG Collected: 11/24/2017 Status: F Source: [facility] 3:30 PM [facility] REPOSITORY TYPE CODE TESTS RESULT OUT OF REFERENCE UNITS RANGE LAB PH(LOINC) 7.380-7.460 pH 7.424 LAB PCO2(LOINC 32.0-46.0 mmHg ) pCO2 36.6 LAB PO2(LOINC) 74.0-108.0 mmHg pO2 High 390.8 LAB HCO3(LOINC 21.0-29.0 mmol/L ) HCO3 23.4 LAB TCO2(LOINC 22.0-30.0 mmol/L ) CO2 Totl 24.5 LAB BE(LOINC) mmol/L Base Excess -0.5 LAB O2SAT(LOIN 92.0-96.0 % C) O2 Sat High 99.8 LAB BPRES(LOIN mmHg C) Barometric 731 Pressure Performed By: #### BG, CAOR, HCTOR, HGBOR, GLUOR, KOR, NAOR, BGOH #### [place] [address] CAOR Collected: 11/24/2017 Status: F Source: [facility] 3:30 [facility] REPOSITORY TYPE CODE TESTS RESULT OUT OF REFERENCE UNITS RANGE LAB CAOR(LOINC) 1.12-1.32 mmol/L Low Calcium 1.09 Ionized OR Performed By: #### BG, CAOR, HCTOR, HGBOR, GLUOR, KOR, NAOR, BGOH #### [place] [address] HCTOR Collected: 11/24/2017 Status: F Source: [facility] 3:30 [facility] REPOSITORY TYPE CODE TESTS RESULT OUT OF REFERENCE UNITS RANGE LAB HCTOR(LOIN 37.0-47.0 % C) Hematocrit OR 46.0 Performed By: #### BG, CAOR, HCTOR, HGBOR, GLUOR, KOR, NAOR, BGOH #### [place] [address] HGBOR Collected: 11/24/2017 Status: F Source: [facility] 3:30 PM [facility] REPOSITORY TYPE CODE TESTS RESULT OUT OF REFERENCE UNITS RANGE LAB HGBOR(LOIN 12.0-16.0 G/dL C) Hemoglobin OR 15.8 Performed By: #### BG, CAOR, HCTOR, HGBOR, GLUOR, KOR, NAOR, BGOH #### [place] [address] GLUOR Collected: 11/24/2017 Status: F Source: [facility] 3:30 PM [facility] REPOSITORY TYPE CODE TESTS RESULT OUT OF REFERENCE UNITS RANGE LAB GLUOR(LOINC 82-115 mg/dL ) High Glucose OR 156 Performed By: #### BG, CAOR, HCTOR, HGBOR, GLUOR, KOR, NAOR, BGOH #### [place] [address] KOR Collected: 11/24/2017 Status: F Source: [facility] 3:30 PM [facility] REPOSITORY TYPE CODE TESTS RESULT OUT OF REFERENCE UNITS RANGE LAB KOR(LOINC) 3.5-5.0 mEq/L Potassium OR 4.0 Performed By: #### BG, CAOR, HCTOR, HGBOR, GLUOR, KOR, NAOR, BGOH #### [place] [address] NAOR Collected: 11/24/2017 Status: F Source: [facility] 3:30 PM [facility] REPOSITORY TYPE CODE TESTS RESULT OUT OF REFERENCE UNITS RANGE LAB NAOR(LOINC) 136-145 mEq/L Low Sodium OR 135 Performed By: #### BG, CAOR, HCTOR, HGBOR, GLUOR, KOR, NAOR, BGOH #### [place] [address] BGOH Collected: 11/24/2017 Status: F Source: [facility] 3:30 PM [facility] REPOSITORY TYPE CODE TESTS RESULT OUT OF REFERENCE UNITS RANGE LAB BGOH(LOINC) Patient OPEN Location HEART Performed By: #### BG, CAOR, HCTOR, HGBOR, GLUOR, KOR, NAOR, BGOH #### [place] [address] XR FLUORO 1-2 HRS Observed: 11/24/2017 Status: F Source: [facility] TECH TIME 12:00 PM [facility] REPOSITORY ORIGINAL XR FLUORO 1-2 HRS TECH TIME CLINICAL STATEMENT: T11-L2 FUSION PAIN lumbar disc degeneration COMPARISON: CT lumbar spine 11/19/2017 Technical Details: Films - 0; Tech Time - 1:00PM-3:30PM; C- Arm # - FANTA 18 - OARM; Total Dose - OARM- 21.13mGy\X0D0A\FANTA - 36.64mG; Images - 390; Research Lab Assistant - EW/KT; History - IMAGE LUMBAR IN OR; Fluoro Time - 41SEC - FANTA\X0D0A\5.93SEC - OARM; FINDINGS: Fluoroscopic spot images were provided for interpretation. They demonstrate surgical instruments projecting over the lumbar spine and placement of orthopedic hardware. Detail is limited. Please see the operative note for details. Interpreted By: Noy Mahmood Preliminary Report By: Noy Mahmood Electronically Signed By: Noy Mahmood Dictated Date: 11/24/2017 3:37:19 PM Prelim Date: 11/24/2017 3:37:19 PM Sign Date: 11/24/2017 3:39:[address] SPINE LUMBAR W/O Observed: 11/19/2017 Status: F Source: [facility] CONTRAST 11:00 AM [facility] REPOSITORY ORIGINAL CT SPINE LUMBAR W/O CONTRAST This exam was performed according to our departmental dose optimization program, and includes the following measures where applicable: automated exposure control, adjustment of the mAs and/or kVp accord ing to patient size and/or exam, and an iterative reconstruction algorithm. CLINICAL STATEMENT: RADICULOPATHY LUMBAR, SPINAL STENOSIS LUMBAR WITH NEUROGENIC CLAUDICATION. COMPARISON: MRI lumbar spine from an outside institution 11/09/2017 FINDINGS: The large L1-L2 herniation is visible, as it contains a few calcifications but is much better demonstrated on the prior MRI. There is fusion across the L4-L5 and L5-S1 disc spaces. Multilevel degenerative changes are present. There is near-complete disc height loss at L1-L2. Vertebral body height is normal and there is no sig nificant listhesis. There is no pars defect. Atherosclerotic calcifications are visible in the larger arteries. IMPRESSION: 1. No fracture, pars defect or aggressive osseous lesion. L4-S1 fusion. 2. The large L1-L2 extrusion is much better demonstrated on the previous MRI. Interpreted By: Theresa Simon Preliminary Report By: Theresa Simon Electronically Signed By: Theresa Simon Dictated Date: 11/19/2017 3:30:20 PM Prelim Date: 11/19/2017 3:30:20 PM Sign Date: 11/19/2017 3:33:10 PM APTT Collected: 11/18/2017 Status: F Source: [facility] 2:04 PM [facility] REPOSITORY TYPE CODE TESTS RESULT OUT OF REFERENCE UNITS RANGE LAB PDOSE(LOIN C) Heparin dose Unknown (APTT) LAB APTT0(LOIN 25.0-35.0 seconds C) APTT 28.5 Result Comment: For Heparin anticoagulation therapy, the recommended therapeutic range is: 54-77 seconds (APTT Correlation with Anti-Xa therapeutic range of 0.3-0.7 units/ml). PLEASE REFERENCE THE PHARMACY PROTOCOL FOR DOSING. Performed By: #### APTT, PRO, CBC, ADIFF, ANEU, BMP, GFR, A1C #### [address] [address] PRO Collected: 11/18/2017 Status: F Source: [facility] 2:04 [facility] REPOSITORY TYPE CODE TESTS RESULT OUT OF REFERENCE UNITS RANGE LAB PT(LOINC) 9.0-14.5 seconds Protime 10.6 Result Comment: Effective 01/03/08, Protime results may be affected by some antibiotics (i.e. Ciprofloxacin, Azithromycin, Bactrim) which may potentiate the action of oral anticoagulants, with further increases in Protime/INR. LAB INR(LOINC) ratio PT International Ratio 0.9 Result Comment: The [place] [employer] (CHEST, 1992, [id number]) recommended therapeutic range for oral anticoagulant therapy is: LOW RISK: Prophylaxis of venous thrombosis INR: 2.0-3.0 Treatment of pulmonary embolism 2.0-3.0 Prevention of systemic embolism 2.0-3.0 HIGH RISK: Mechanical prosthetic valves 2.5-3.5 Performed By: #### APTT, PRO, CBC, ADIFF, ANEU, BMP, GFR, A1C #### [address] [address] CBC Collected: 11/18/2017 Status: F Source: [facility] 2:04 [facility] REPOSITORY TYPE CODE TESTS RESULT OUT OF REFERENCE UNITS RANGE LAB WBC(LOINC) 4.50-10.80 10 3/mcL High WBC 12.70 LAB RBCCT(LOINC 4.10-5.30 10 6/mcL ) High RBC 5.68 LAB HGB(LOINC) 12.0-16.0 G/dL High Hgb 16.1 LAB HCT(LOINC) 34.0-46.0 % High Hct 48.8 LAB MCV(LOINC) 80.0-99.0 fL MCV 85.9 LAB MCH(LOINC) 27.0-33.0 pg MCH 28.4 LAB MCHC(LOINC) 32.0-36.0 G/dL MCHC 33.0 LAB RDW(LOINC) 11.5-15.5 % High RDW 15.7 LAB PLT(LOINC) 150-450 10 3/mcL Platelet 259 LAB MPV(LOINC) 6.6-10.5 fL MPV 7.6 Performed By: #### APTT, PRO, CBC, ADIFF, ANEU, BMP, GFR, A1C #### [address] [address] .AUTO DIFF Collected: 11/18/2017 Status: F Source: [facility] 2:04 [facility] REPOSITORY TYPE CODE TESTS RESULT OUT OF REFERENCE UNITS RANGE LAB BALDEMAR(LOINC) 50.0-75.0 % Neutrophil % 71.8 LAB LYM(LOINC) 20.0-40.0 % Low Lymphocyte % 19.8 LAB MON(LOINC) 2.0-13.0 % Monocyte % 7.4 LAB EO(LOINC) 0.0-6.0 % Eosinophil % 0.6 LAB BAS(LOINC) 0.0-2.5 % Basophil % 0.4 LAB ABLYM(LOIN 0.90-4.32 10 3/mcL C) Lymphocyte, 2.50 Absolute LAB SLAVA(LOINC 0.09-1.40 10 3/mcL ) Monocyte, 0.90 Absolute LAB AEOS(LOINC 0.00-0.65 10 3/mcL ) Eosinophil, 0.10 Absolute LAB ABAS(LOINC 0.00-0.27 10 3/mcL ) Basophil, 0.10 Absolute Performed By: #### APTT, PRO, CBC, ADIFF, ANEU, BMP, GFR, A1C #### [address] [address] .NEUABS Collected: 11/18/2017 Status: F Source: [facility] 2:04 [facility] REPOSITORY TYPE CODE TESTS RESULT OUT OF REFERENCE UNITS RANGE LAB ANEU(LOINC) 2.25-8.10 10 3/mcL High Neutrophil, 9.10 Absolute Performed By: #### APTT, PRO, CBC, ADIFF, ANEU, BMP, GFR, A1C #### [place] [id number] BMP Collected: 11/18/2017 Status: F Source: [facility] 2:04 [facility] REPOSITORY TYPE CODE TESTS RESULT OUT OF REFERENCE UNITS RANGE LAB GLU(LOINC) 82-115 mg/dL Low Glucose Level 50 LAB NA(LOINC) 136-145 mEq/L Sodium Level 142 LAB K(LOINC) 3.5-5.0 mEq/L Potassium Level 4.9 LAB CL(LOINC) 98-110 mEq/L Chloride 103 LAB CO2(LOINC) 22-32 mEq/L CO2 31 LAB EBAL(LOINC 4.0-15.0 mEq/L ) Electrolyte Balance 8.0 LAB BUN(LOINC) 8.0-22.0 mg/dL BUN High 33.0 LAB CRE(LOINC) 0.50-1.20 mg/dL Creatinine Lvl (s) 1.17 LAB BC(LOINC) 10.0-22.0 ratio High BUN/Creatinine 28.2 Ratio LAB CA(LOINC) 8.4-10.1 mg/dL Calcium Lvl 9.6 Performed By: #### APTT, PRO, CBC, ADIFF, ANEU, BMP, GFR, A1C #### [address] [address] .GFR Collected: 11/18/2017 Status: F Source: [facility] 2:04 [facility] REPOSITORY TYPE CODE TESTS RESULT OUT OF REFERENCE UNITS RANGE LAB GFRAA(LOINC ml/min/1.73 ) sqm GFR 56 [place] Result Comment: GFR Population mean for , Non- Americans Ages 20-29 = 116 mL/min/1.73 sq.m. Ages 30-39 = 107 mL/min/1.73 sq.m. Ages 40-49 = 99 mL/min/1.73 sq.m. Ages 50-59 = 93 mL/min/1.73 sq.m. Ages 60-69 = 85 mL/min/1.73 sq.m. Ages 70+ = 75 mL/min/1.73 sq.m. Chronic Kidney Disease: Less than 60 mL/min/1.73 square meters End Stage Renal Disease: Less than 15 mL/min/1.73 square meters LAB GFRNO(LOINC) ml/min/1.73sqm GFR Non- 46 Result Comment: GFR Population mean for , Non- Americans Ages 20-29 = 116 mL/min/1.73 sq.m. Ages 30-39 = 107 mL/min/1.73 sq.m. Ages 40-49 = 99 mL/min/1.73 sq.m. Ages 50-59 = 93 mL/min/1.73 sq.m. Ages 60-69 = 85 mL/min/1.73 sq.m. Ages 70+ = 75 mL/min/1.73 sq.m. Chronic Kidney Disease: Less than 60 mL/min/1.73 square meters End Stage Renal Disease: Less than 15 mL/min/1.73 square meters Performed By: #### APTT, PRO, CBC, ADIFF, ANEU, BMP, GFR, A1C #### [address] [address] A1C Collected: 11/18/2017 Status: F Source: [facility] 2:04 PM [facility] REPOSITORY TYPE CODE TESTS RESULT OUT OF RANGE REFERENCE UNITS LAB A1C(LOINC) 4.0-6.0 % High Hgb A1c 7.9 Performed By: #### APTT, PRO, CBC, ADIFF, ANEU, BMP, GFR, A1C #### [address] [address] HEMOGLOBIN A1C Collected: 10/27/2017 Status: F Source: [facility] 11:45 AM REPOSITORY TYPE CODE TESTS RESULT OUT OF RANGE REFERENCE UNITS LAB L501.9985 4.2-6.3 % High HGB A1C 7.9 Performed By: #### L501.9985 #### [facility] [address] [place], [address] DIGITAL MAMMO Observed: 10/15/2017 Status: F Source: [employer] SCREENING 6:49 AM [facility] REPOSITORY BILATERAL DIGITAL SCREENING MAMMOGRAM WITH CAD: 10/15/2017 CLINICAL: Routine screening. Comparison is made to exams dated: 06/17/2016 mammogram and 06/17/2015 mammogram - [facility]. The tissue of both breasts is predominantly fatty. Current study was also evaluated with a Computer Aided Detection (CAD) system. There is a benign calcification right breast. There also are benign calcifications left breast. No significant masses, calcifications, or other findings are seen in either breast. There has been no significant interval change. IMPRESSION: BENIGN There is no mammographic evidence of malignancy. A 1 year screening mammogram is recommended. The false-negative rate of mammography is approximately 10%. Management of a palpable abnormality must be based upon clinical grounds. Dr. Geronimo Guerrero M.D. mrd/penrad:10/15/2017 16:08:59 Indoor Plant Technician: Rae DUPONT (R)), Richie [facility] Breast [facility] letter sent: Mammography Normal BI-RADS: 2 Benign Reported By: GERONIMO GUERRERO M.D. Signed By: GERONIMO GUERRERO M.D. ALLERGIES ALLERGIES No Allergies Records FoundENCOUNTERS ENCOUNTERS ADMIT/DISCHARGE ACCOUNT NUMBER ADMITTING ENCOUNTER LOCATION SOURCE CLASS 06/07/2018 [id number] [facility] 04/06/2018 [id number] Ambulatory ABuilding:[facility] Repository 03/31/2018/ [id number] Ambulatory ABuilding:[facility] [address] [facility] Repository 03/28/2018/ [id number] [facility] [facility] Repository 02/24/2018/ [id number] Ambulatory AULTMANBuildi Jorge 018 ng:[facility] Repository 01/05/2018/ [id number] JOSE PEREZ, Inpatient ABuilding:YURIY Jorge Ravin Herron Encounter Room: [place] [address]Bed: [facility] Repository 12/10/2017/ [id number] Ambulatory RBuilding:[facility] Jorge 018 [facility] Repository 11/24/2017/ [id number] JOSE PEREZ, Inpatient ABuilding:YURIY [place] Encounter Room: [place] [id number]: A [facility] Repository 11/19/2017/ [id number] Ambulatory JORGE Jorge 018 [facility] 11/18/2017/ [id number] Ambulatory AULTMANBuildi Jorge 018 ng:[facility] Repository 10/27/2017 [id number] Ambulatory Yair [facility] ing:MTLAB Repository 10/15/2017 [id number] Ambulatory [facility] g:HNoniJX Repository PAYERS PAYERS ENCOUNTER GUARANTOR PAYER SUBSCRIBER SOURCE 06/07/2018 JARROD Burgess Primary JARROD Burgess [facility] Insurance:SUKUMAR SCHUSTERDOB: [address] HEALTH PLAN [id number] [place] [address]Jud: HMOPolicy Number: Repository [id number] (HP) e Date:[id number] [place] [address]EW: 06/07/2018 [facility]SELF PAY [place] Number: Effective Repository Date:2018-06-07 04/06/2018 J[facility]OD Burgess [facility] Insurance:PRIME TIME SCHUSTERDOB: [facility] [id number]Policy [id number] Repository [address] [place] [address], Number: [place] [address]Ecy: [id number] [address] [place] [address] e Date:2018-04-06 52096Dni: (330 (HP)Tel: [phone]) [id number] [phone] (HP)Tel: [phone] (WP) Name:[facility] [place] [address] [place], [place] [address], [place] ([place]) [address]WP: 03/31/2018 JARROD Burgess Primary [facility]: [facility]:PRIME TIME SCHUSTERDOB: [facility] [id number] [place]Policy [id number] Repository [address] [place] [address], Number: [place] [address]Hyc: [id number] [address] [place] [address] e Date:2018-03-28 05793Rwi: (330) (HP)Tel: [phone] [id number] [phone] (HP)Tel: [phone] (WP) Name:LUTHER Mcgraw [address], [place] ([place]) [address]DX: 03/28/2018 JARROD A [facility] SCHUSTERDOB: Insurance:PRIME TIME SCHUSTERDOB: [facility] [id number] [facility] ([place])Policy [id number] Repository [address] [place] [address], Number: [place] [address]Gwv: [id number] [address] [place] [address], [place] e Date:2018-03-2844296Bdq: (330) (HP)Tel: 330 [id number] [phone] (HP)Tel: [phone] (WP) Name:LUTHER [address], [place] () [address]OH: 02/24/2018 JARROD Burgess [facility] SCHUSTERDOB: Insurance:PRIME TIME SCHUSTERDOB: [facility] [id number] [employer] ([place])Policy [id number] Repository [address] [place] [address], Number: [place] [address]Mnj: [id number] [address] [place] [address], [place] e Date:2018-02-24 494[address]Rry: (330) (HP)Tel: 330 [id number] [phone] (HP)Tel: [phone] (WP) Name:LUTHER ALVAREZ [address], [place] ([place]) [address]IQ: 01/05/2018 JARROD Aditya [facility] SCHUSTERDOB: Insurance:PRIME TIME SCHUSTERDOB: [facility] [id number] [employer] ([place])Policy [id number] Repository [address] [place] [address], Number: [place] [address]Ccn: [id number] [address] [place] [address], [place] e Date:2018-01-05 533[address]Hod: (330) (HP)Tel: 330 [id number] [phone] (HP)Tel: [phone] (WP) Name:LUTHER ALVAREZ [address], [place] (WP) [address]MV: 01/05/2018 Secondary [facility] Insurance:MEDICARE SCHUSTERDOB: [facility] PART APolicy Number: [id number] Repository [id number] BOX Date:2018-01-[address] [place] [address] [id number] [id number]: (330) Name:MMail Code AG [phone] (HP)Tel: [address]Agacwhhq, [place] ([place]) [address]NR: 12/10/2017 [facility] SCHUSTERDOB: Insurance:PRIME TIME SCHUSTERDOB: [facility] [id number] [facility]OX [facility] ([place])Policy [id number] Repository [address] [place] [address], Number: [facility] [address]Ssu: [id number] [address] [place] [address] e Date:2017-12-1040364Qsp: (330) (HP)Tel: [phone] (HP)Tel: [phone] (WP) Name:NPVikram ALVAREZ [address], [place] (WP) [address]ID: 12/10/2017 Secondary [facility] Insurance:MEDICARE SCHUSTERDOB: [facility] PART APolicy Number: [id number] Repository [id number] BOX Date:2017-12-[address] [place] [address] [id number] 41200Nfd: (330) Name:MMail Code AG [phone] (HP)Tel: [address]Qfyunjny, [place] ([place]) [address]NL: 11/24/2017 JARROD A [facility] Carolina[facility]DOB: Insurance:PRIME TIME SCHUSTERDOB: [facility] [id number] [place]Policy [id number] Repository [address] [place] [address], Number: [place] [address]Cpb: [id number] [address] [place] [address] e Date:2017-11-1800681Vow: (330) (HP)Tel: 330 [id number] [phone] (HP)Tel: [phone] (WP) Name:[address], [place] ([place]) [address]MB: 11/24/2017 Secondary [facility] Insurance:MEDICARE SCHUSTERDOB: [facility] PART APolicy Number: [id number] Repository [id number] BOX Date:2017-11-18[place], [place] [id number] [address]Yep: (330) Name:[facility] [phone] (HP)Tel: [facility] [address], [place] () [address]DC: 11/19/2017 JARROD Aditya [facility] Ad[facility]a [facility] Center[facility]: Insurance:PRIME TIME SCHUSTERDOB: [facility] [id number] MEDICAL C[facility] ([place])Policy [id number] Repository [address] [place] [address], Number: [place] [address]Phd: [id number] [address] [place] [address] e Date:2017-11-1830914Xdp: (330) (HP)Tel: 330 [id number] [phone] (HP)Tel: [phone] (WP) Name:[address], [place] ([place]) [address]FG: 11/18/2017 JARROD A [facility] CarolinaUSTERDOB: Insurance:PRIME TIME SCHUSTERDOB: [facility] [id number] [facility] ([place])Policy [id number] Repository [id number] [facility] Number: [address] [facility] [place] [id number] [facility] [address]Ozu: (330) e Date:2017-11-18 - [facility]SPRESBY[facility] H[facility]ITALHE[facility] [place] [phone] [address]Rzx: (330) (HP)Tel: (330) Name:[phone] (HP)Tel: [phone] () 5531EKETTERING [place] [address]WP: (311) (TF) [phone] 10/27/2017 JARROD A Primary JARROD A Yair [facility] [address] [facility]ALTH [facility] [id number] Health Care Center [address]Kvc: OPolicy Number: Repository [id number] (HP) e Date:0048-26-22CJ [address] [address]PI: 10/27/2017 Secondary NOT GIVENUNK [place] Insurance:SELF PAY [place] Number: Effective Repository Date:2017-10-27 10/15/2017 JARROD A Primary JARROD A [facility] [address] [facility] [id number] Repository [facility] HospitalOPolicy Number: [id number]: [id number] e Date:3189-89-39HZ () [address]CKETTER[facility] [place] [address]GF:
== END ==
PROVIDERS: Family Provider Internal Medicine Adolescent Medicine; PCP Internal Medicine Adolescent Medicine; Referring Provider Internal Medicine; Visit Provider Internal Medicine
DX: E11.9 Type 2 diabetes mellitus without complications (principal)
CPT/HCPCS: 36415; 80053; 80061; 82043; 82570; 83036; 84443; 85027

== ENCOUNTER → 2018-09-29 12:02 | Outpatient (CLI) | payer MEDICARE, SELFPAY ==
[2018-09-29 14:28] LABS: Hemoglobin A1c 8.2 % (4.2-6.3)
== END ==
PROVIDERS: Family Provider Internal Medicine Adolescent Medicine; PCP Internal Medicine Adolescent Medicine; Referring Provider Internal Medicine; Visit Provider Internal Medicine
DX: E10.9 Type 1 diabetes mellitus without complications (principal); Z79.4 Long term (current) use of insulin
CPT/HCPCS: 36415; 83036

== ENCOUNTER → 2019-05-10 09:31 | Outpatient (CLI) | payer MEDICARE, SELFPAY ==
[2019-05-10 12:22] LABS: Hematocrit 51.9 % (37-47); Hemoglobin 16.4 g/dL (12.0-15.0); Mean Corp Hgb Conc 31.6 g/dL (32-36); Mean Corpuscular Hgb 27.4 pg (27.0-32.0); Mean Corpuscular Volume 86.6 fL (81-99); Mean Platelet Vol. 9.5 fl (6.2-12.0); Platelet Count 280 K/mm3 (150-450); Red Blood Count 5.99 M/mm3 (4.2-5.4); White Blood Count 8.7 K/mm3 (4.4-11.0)
[2019-05-10 12:41] LABS: Hemoglobin A1c 8.2 % (4.2-6.3)
[2019-05-10 12:48] LABS: ALB/GLOB Ratio 0.8 RATIO (0.9-2.4); AST(SGOT) 26 U/L (15-37); Alanine Aminotransfer ALT/SGPT 39 U/L (13-56); Albumin, Serum 3.5 g/dL (3.2-5.0); Alkaline Phosphatase 82 U/L (45-117); Anion Gap 7 (5-15); BUN 27 mg/dL (7-18); BUN/Creat Ratio 22.1 RATIO (10-20); Calcium,Total 9.2 mg/dL (8.5-10.1); Chloride 106 mmol/L (98-107); Cholesterol 116 mg/dL (200); Creatinine, Serum 1.22 mg/dL (0.55-1.02); EST Glomerular Filtration Rate 47 mL/min (>60); Est Glom Filt Rate - Afr Amer 56 mL/min (>60); Globulin 4.2 g/dL (2.2-4.2); Glucose 115 mg/dL (74-106); High Density Lipoprotein 46 mg/dL; Potassium 3.9 mmol/L (3.5-5.1); Protein, Total 7.7 g/dL (6.4-8.2); Sodium Level 138 mmol/L (136-145); Thyroid Stim Hormone (TSH) 3.09 uIU/mL (0.358-3.74); Triglycerides 150 mg/dL; Very Low Density Lipoprotein 30 mg/dL (5-40)
[2019-05-10 13:07] LABS: Microalbumin,Random Urine 15.4 mg/L (NO RANGE EST.); Microalbumin:Creatinine Ratio 8.7 mg/g CRE (<30 mg/g CRE)
== END ==
PROVIDERS: Family Provider Internal Medicine Adolescent Medicine; PCP Internal Medicine Adolescent Medicine; Referring Provider Internal Medicine; Visit Provider Internal Medicine
DX: E10.9 Type 1 diabetes mellitus without complications (principal); Z79.4 Long term (current) use of insulin
CPT/HCPCS: 36415; 80053; 80061; 82043; 82570; 83036; 84443; 85027

== ENCOUNTER → 2019-08-12 08:33 | Outpatient (CLI) | payer MEDICARE, SELFPAY ==
[2019-08-12 09:50] LABS: Hemoglobin A1c 8.1 % (4.2-6.3)
== END ==
PROVIDERS: PCP Internal Medicine Adolescent Medicine; Referring Provider Internal Medicine; Visit Provider Internal Medicine
DX: E11.9 Type 2 diabetes mellitus without complications (principal)
CPT/HCPCS: 36415; 82533; 83036

== ENCOUNTER → 2019-11-07 07:34 | Outpatient (CLI) | payer MEDICARE, SELFPAY ==
[2019-11-07 10:35] LABS: Hemoglobin A1c 7.9 % (3.8-5.6)
== END ==
PROVIDERS: PCP Internal Medicine Adolescent Medicine; Referring Provider Internal Medicine; Visit Provider Internal Medicine
DX: E10.9 Type 1 diabetes mellitus without complications (principal); Z79.4 Long term (current) use of insulin
CPT/HCPCS: 36415; 83036

== ENCOUNTER → 2020-02-13 09:08 | Outpatient (CLI) | payer MEDICARE, SELFPAY ==
[2020-02-13 12:15] LABS: Hematocrit 49.6 % (37-47); Mean Corp Hgb Conc 32.3 g/dL (32-36); Mean Corpuscular Hgb 27.6 pg (27.0-32.0); Mean Corpuscular Volume 85.5 fL (81-99); Mean Platelet Vol. 9.2 fl (6.2-12.0); Platelet Count 292 K/mm3 (150-450); RBC Distribution Width CV 14.9 % (11.6-14.6); RBC Distribution Width SD 46.2 fl (35.1-43.9)
[2020-02-13 12:53] LABS: Hemoglobin A1c 8.7 % (3.8-5.6)
[2020-02-13 12:59] LABS: ALB/GLOB Ratio 0.8 RATIO (0.9-2.4); AST(SGOT) 22 U/L (15-37); Alanine Aminotransfer ALT/SGPT 33 U/L (13-56); Albumin, Serum 3.4 g/dL (3.2-5.0); Alkaline Phosphatase 73 U/L (45-117); Anion Gap 6 (5-15); BUN 23 mg/dL (7-18); BUN/Creat Ratio 18.4 RATIO (10-20); Calcium,Total 9.2 mg/dL (8.5-10.1); Chloride 104 mmol/L (98-107); Cholesterol 143 mg/dL (200); Creatinine, Serum 1.25 mg/dL (0.55-1.02); EST Glomerular Filtration Rate 45 mL/min (>60); Est Glom Filt Rate - Afr Amer 55 mL/min (>60); Globulin 4.3 g/dL (2.2-4.2); Glucose 120 mg/dL (74-106); High Density Lipoprotein 41 mg/dL; Potassium 3.9 mmol/L (3.5-5.1); Protein, Total 7.7 g/dL (6.4-8.2); Sodium Level 139 mmol/L (136-145); Thyroid Stim Hormone (TSH) 2.43 uIU/mL (0.358-3.74); Triglycerides 177 mg/dL; Very Low Density Lipoprotein 35 mg/dL (5-40)
[2020-02-13 13:10] LABS: Microalbumin,Random Urine < 5.0 mg/L (NO RANGE EST.)
== END ==
PROVIDERS: PCP Internal Medicine Adolescent Medicine; Referring Provider Internal Medicine; Visit Provider Internal Medicine
DX: E11.9 Type 2 diabetes mellitus without complications (principal)
CPT/HCPCS: 36415; 80053; 80061; 82043; 82570; 83036; 84443; 85027

== ENCOUNTER → 2020-05-23 | Outpatient (CLI) | payer MEDICARE, SELFPAY | END | disposition home or self-care (01) | LOC: LABSPEC 15:16 | PROVIDERS: PCP Internal Medicine Adolescent Medicine; Referring Provider Otolaryngology; Visit Provider Otolaryngology | DX: J01.90 Acute sinusitis, unspecified (principal) | CPT/HCPCS: 87070; 87205 ==